=== PATIENT | female | born 1950 | race Asian ===

== ENCOUNTER 2022-09-18 17:38 | Inpatient (IN) | payer MEDICARE, OTHER ==
[~2022-09-18] VITALS: Ht 162.6 cm; Wt 61.7 kg
--- NOTE | 2022-09-18 17:54 | NUR ---
Pt seen by MD @ nursing station. Safety measures in place. Will continue to monitor.
[2022-09-18 17:56] LABS: HEMATOCRIT 38.8 % (31.2-41.9); MEAN CORPUSCULAR HEMOGLOBIN 29.7 uug (24.7-32.8); MEAN CORPUSCULAR VOLUME 89.4 fL (75.5-95.3); PLATELET COUNT (AUTO) 280 K/uL (179-408)
[2022-09-18 18:00] LABS: *BILIRUBIN,URIN NEGATIVE (NEGATIVE); *BLOOD, URINE 1+ (NEGATIVE); *CLARITY,URINE CLEAR (CLEAR); *COLOR,URINE YELLOW (YELLOW); *KETONES,URINE NEGATIVE (NEGATIVE); *UROBILINOGEN,URINE 0.2 E.U./dl (NORMAL); LEUKOCYTE ESTERASE ,URINE NEGATIVE (NEGATIVE); NITRITE, URINE NEGATIVE (NEGATIVE); PH,URINE 5.5 (5.0-8.0); UGLUCOSE NEGATIVE (NEGATIVE)
[2022-09-18] MEDS ORDERED: ATOR10TA PO (18:01)
[2022-09-18] MEDS ORDERED: DONE5TAB7 PO (18:01)
[2022-09-18] MEDS ORDERED: QUET25TA PO ×2 (18:01)
[2022-09-18] MEDS ORDERED: ACET-2030 PO (18:01)
[2022-09-18] MEDS ORDERED: METF-440 PO (18:01)
[2022-09-18 18:06] LABS: WBC,URINE 0-3 /HPF (0-3)
[2022-09-18 18:09] LABS: CARBON DIOXIDE 27 mmol/L (21-32); CHLORIDE 104 mmol/L (98-107); CREATININE 0.8 mg/dL (0.6-1.3); GLUCOSE 101 mg/dL (74-106); POTASSIUM 4.1 mmol/L (3.5-5.1); UREA NITROGEN, BLOOD 21 mg/dL (7-18)
[2022-09-18 18:14] LABS: ALANINE AMINOTRANSFERASE 23 U/L (14-59); ALKALINE PHOSPHATASE 122 U/L (50-136); ASPARTATE AMINOTRANSFERASE 10 U/L (15-37); BILIRUBIN,DIRECT 0.1 mg/dL (0.0-0.2); BILIRUBIN,TOTAL 0.2 mg/dL (0.2-1.0); TOTAL PROTEIN, SERUM 7.5 g/dL (6.4-8.2)
[2022-09-18 18:16] LABS: ACETAMINOPHEN < 2.0 ug/mL (10-30)
[2022-09-18 18:20] LABS: ETHANOL < 3 MG/DL (0-0)
[2022-09-18 18:21] LABS: *AMPHETAMINE, URINE NEGATIVE (NEGATIVE); *CANNABINOID, URINE NEGATIVE (NEGATIVE); *COCCAINE, URINE NEGATIVE (NEGATIVE); *PHENCYCLIDINE SCREEN,URINE NEGATIVE (NEGATIVE)
--- NOTE | 2022-09-18 18:28 | NUR ---
Called Mary for Pt admission. Mary stated she will come in "1 hour." Safety measures in place. Will continue to monitor.
--- NOTE | 2022-09-18 19:00 | NUR ---
ROSALBA Hilario RN
--- NOTE | 2022-09-18 19:06 | NUR ---
Patient is ambulatory with steady gait, wandering around in the ER
--- NOTE | 2022-09-18 19:31 | NUR ---
Mary - Importer Exporter at bedside, psych evaluation in progress
--- NOTE | 2022-09-18 19:32 | NUR ---
called for MHU bed, spoke with Barbara GANDHI. Patient assigned to MHU room 139B
--- NOTE | 2022-09-18 20:14 | NUR ---
called MHU to give report, spoke with switch house operator Moris GANDHI; was told to keep the patient in ER, no RN to receive the patient at the moment
--- NOTE | 2022-09-18 21:06 | NUR ---
Endorsed to Maurilio Lima Earline
--- NOTE | 2022-09-18 21:32 | NUR ---
PT UP OOB AMB TO BR WITH STEADY GAIT. PT A,A AND O X 3 WITH NO COMPLAINTS AND NAD OBSERVED.
[2022-09-18 21:45] VITALS: BP 152/85
[2022-09-18] MEDS ORDERED: CLONAZEPAM 0.5 MG TABLET PO PRN (21:45)
[2022-09-18] MEDS ORDERED: BLOOD SUGAR DIAGNOSTIC 1 EACH STRIP VI ONE (21:45)
[2022-09-18] MEDS ORDERED: MAGNESIUM HYDROXIDE 30 ML LIQUID UDC PO PRN (21:45)
[2022-09-18] MEDS ORDERED: ACETAMINOPHEN 325 MG TABLET PO PRN (21:45)
[2022-09-18] MEDS ORDERED: TEMAZEPAM 7.5 MG CAPSULE PO PRN (21:45)
[2022-09-18] MEDS ORDERED: MAG HYDROX/AL HYDROX/SIMETH 30 ML LIQUID UDC PO PRN (21:45)
--- NOTE | 2022-09-18 21:51 | NUR ---
Pt. admitted to MHU room 139B , under care of Dr. Payne Belongs List completed Maurilio RN aware of patient's arrival
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
[2022-09-19 07:47] VITALS: BP 130/79
[2022-09-19] MEDS: QUETIAPINE FUMARATE 25 MG TABLET PO SCH ×2 (09:41→18:09)
[2022-09-19 15:02] VITALS: BP 142/76
--- NOTE | 2022-09-19 18:39 | NUR ---
Pt is confuse and anxious. Pt is ambulatory and is able to perform her ADLs. Pt is cooperative with care and compliant with medications. Pt is forgetful and goes into other rooms because she forgets her room number.Pt is isolative, withdrawn and stays in his room all day. pt was encouraged to participate in group activities bu refused. Continue to monitor for safety. Continue with treatment plan.
[2022-09-19 19:48] VITALS: BP 136/72
[2022-09-19] MEDS: ATORVASTATIN 10 MG TABLET PO SCH (20:52)
[2022-09-20 07:30] VITALS: BP 135/84
[2022-09-20] MEDS: QUETIAPINE FUMARATE 25 MG TABLET PO SCH ×2 (09:20→17:44)
[2022-09-20] MEDS: METFORMIN HCL 500 MG TABLET PO SCH ×2 (09:20→17:43)
--- NOTE | 2022-09-20 12:23 | NUR ---
BERTIN Family Contact: SW spoke with pt's sonIban in person ([phone]) regarding pt's return to [facility] upon discharge.
[2022-09-20 13:51] LABS: THYROID STIMULATING HORMONE 0.523 mIU/mL (0.358-3.740)
[2022-09-20 15:50] VITALS: BP 125/75
--- NOTE | 2022-09-20 16:18 | NUR ---
BERTIN Initial Discharge Note: Pt currently resides at [facility] located at [address] [place] [address] ([phone]). BERTIN spoke with pt's son, Iban in person ([phone]) regarding pt's return to [facility] upon discharge. BERTIN will continue to work with pt, family and MD to ensure a safe and proper discharge plan.
--- NOTE | 2022-09-20 18:36 | NUR ---
Pt is pleasantly confuse and and forgetful. Pt is ambulatory and is able to perform her ADLs.Pt is cooperative with care and compliant with medications. Pt has poor insight to present situation. Safe environment provided. Will continue to monitor for safety.
[2022-09-20 20:07] VITALS: BP 131/75
[2022-09-20] MEDS: ATORVASTATIN 10 MG TABLET PO SCH (21:33)
--- NOTE | 2022-09-21 05:11 | NUR ---
AOx 2, pt is compliant with care and meds, pt is withdrawn and isolated herself in bed for the entire shift. Contracted for safety with safety strategies implemented. Will continue to monitor.
[2022-09-21 07:34] VITALS: BP 128/72
[2022-09-21] MEDS: METFORMIN HCL 500 MG TABLET PO SCH ×2 (08:38→17:22)
[2022-09-21] MEDS: QUETIAPINE FUMARATE 25 MG TABLET PO SCH ×2 (08:39→17:22)
--- NOTE | 2022-09-21 14:00 | NUR ---
Gps/Electrophysiologist-Per patient she wants to go back to her previous room , when asked where was her previous room, she claimed its in [place], she has all her clothes there , aware she's at [facility] , encouraged to attend her group activity, refused . flat, guarded.pacing around in her room.
[2022-09-21 15:58] VITALS: BP 125/69
[2022-09-21 19:56] VITALS: BP 112/66
[2022-09-21] MEDS: ATORVASTATIN 10 MG TABLET PO SCH (20:26)
--- NOTE | 2022-09-22 05:16 | NUR ---
Pt is withdrawn and isolative. Pt stayed in room the whole shift and slept for 7.15 hours. Pt is cooperative with care and compliant with medications. Safety strategies put in place. Continue to monitor for safety,continue with treatment plan.
[2022-09-22 07:37] VITALS: BP 110/65
[2022-09-22] MEDS: QUETIAPINE FUMARATE 25 MG TABLET PO SCH ×2 (08:45→17:27)
[2022-09-22] MEDS: METFORMIN HCL 500 MG TABLET PO SCH ×2 (08:45→17:27)
--- NOTE | 2022-09-22 13:34 | NUR ---
GPS: Nursing Notes: Thought Disorder: Patient is awake and responding to her name, disoriented, impaired judgment, poor insight, gets easily anxious when redirected, unable to formulate a viable plan for self care, refusing to participate in therapeutic groups, isolative and withdrawn in her room, no aggressive behavior noted, continue to monitor for safety, continue with treatment plan.
[2022-09-22 16:35] VITALS: BP 119/71
[2022-09-22 20:00] VITALS: BP 109/67
[2022-09-22] MEDS: ATORVASTATIN 10 MG TABLET PO SCH (21:00)
--- NOTE | 2022-09-23 06:24 | NUR ---
Patient did not want to take her medication last night. Was mute, angry and had poor eye contact. This am, the patient is up early, rooting around in her room, looking for her cloths and expressing a desire to leave. The patient is disoriented . Redirection and reorientation provided. Safety Stratiges are in place. Continuing to monitor for behavior escalation.
[2022-09-23 07:50] VITALS: BP 121/57
[2022-09-23] MEDS: QUETIAPINE FUMARATE 25 MG TABLET PO SCH ×2 (08:15→17:35)
[2022-09-23] MEDS: METFORMIN HCL 500 MG TABLET PO SCH ×2 (08:15→17:35)
--- NOTE | 2022-09-23 11:12 | NUR ---
GPS: Nursing Notes: Thought Disorder: Patient is awake and responding to her name, disoriented, impaired judgment, refusing to shower, refusing to participate in therapeutic groups, unable to formulate a viable plan for self care, stated "I want to go home.. I don't know what I am doing here..", redirected and reoriented during shift, gets easily irritable when redirected, continue to monitor for safety, continue with treatment plan.
[2022-09-23 16:47] VITALS: BP 139/82
[2022-09-23 19:42] VITALS: BP 126/64
[2022-09-23] MEDS: ATORVASTATIN 10 MG TABLET PO SCH (20:00)
--- NOTE | 2022-09-24 05:06 | NUR ---
Received patient in her bed. Awake but confused. Multiple times this patient was instructed to keep the door to the room open, but she would not comply. The patient was paranoid and refused fluids, snack, PRN medications ,a shower, or to let staff wash her cloths. This publicity writer was not able to engage the patient in any type of meaningful conversation. Safety Stratiges are in place. No aggressive or irritable reactions or behaviors noted, just defiance to the unit rules at this time.
[2022-09-24 07:48] VITALS: BP 129/70
[2022-09-24] MEDS: METFORMIN HCL 500 MG TABLET PO SCH ×2 (08:20→17:05)
[2022-09-24] MEDS: QUETIAPINE FUMARATE 25 MG TABLET PO SCH ×2 (08:20→17:06)
--- NOTE | 2022-09-24 13:03 | NUR ---
BERTIN Family Contact: SW spoke with pt's sonIban in person ([phone]) and discussed the current plan of pt returning to [place] [id number] upon discharge ([phone]).
--- NOTE | 2022-09-24 14:59 | NUR ---
GPS: Nursing Notes: Thought Disorder: Patient is awake and responding to her name, disoriented, impaired judgment, resistant with nursing care, refusing to shower, isolative and withdrawn in her room, no interaction with peers, compliant with her medications, unable to formulate a viable plan for self care, poor grooming, continue to monitor for safety, continue with treatment plan.
[2022-09-24 16:04] VITALS: BP 119/67
[2022-09-24 19:51] VITALS: BP 124/66
[2022-09-24] MEDS: ATORVASTATIN 10 MG TABLET PO SCH (20:18)
[2022-09-25 07:30] VITALS: BP 116/69
[2022-09-25] MEDS: QUETIAPINE FUMARATE 25 MG TABLET PO SCH ×2 (08:10→17:05)
[2022-09-25] MEDS: METFORMIN HCL 500 MG TABLET PO SCH ×2 (08:10→17:05)
--- NOTE | 2022-09-25 14:03 | NUR ---
GPS: Nursing Notes: Thought Disorder: Patient is awake and responding to her name, isolative in her room, no interactions with peers, refusing to participate in therapeutic groups, refusing to shower, believes there is nothing wrong with her, stated "I don't know why I am here... I am fine..", disoriented to time, unable to formulate a viable plan for self care, continue to monitor for safety, continue with treatment plan.
--- NOTE | 2022-09-25 15:05 | NUR ---
Patient had court hearing today, food broker Esequiel Ortiz gave 14 Day probable cause for GD only.
[2022-09-25 15:26] VITALS: BP 123/72
[2022-09-25 19:56] VITALS: BP 111/64
[2022-09-25] MEDS: MEMANTINE HCL 5 MG TABLET PO SCH (20:28)
[2022-09-25] MEDS: ATORVASTATIN 10 MG TABLET PO SCH (20:28)
--- NOTE | 2022-09-26 03:39 | NUR ---
gps notes: Received patient in the room, responsive to her name, gets irritable when approached, states " I want to sleep in". isolative, withdrawn and guarded. Med compliant. Refused hygiene care. Continues to sleep during this shift. No distress noted. All safety strategies left in placed.
[2022-09-26 07:52] VITALS: BP 115/66
[2022-09-26] MEDS: QUETIAPINE FUMARATE 25 MG TABLET PO SCH ×2 (08:25→17:06)
[2022-09-26] MEDS: METFORMIN HCL 500 MG TABLET PO SCH ×2 (08:25→17:06)
--- NOTE | 2022-09-26 09:21 | NUR ---
BERTIN DISCHARGE UPDATE: BERTIN faxed patient's referral packet including: History and Physical, Consultation, Progress Notes, Medication List and Labs to the following facilities for review and possible alf placement: BERTIN faxed updated clinicals to pt's returning facility, [place] [address] ATTN TO GIULIA IN ADMISSIONS F: [phone]. PER GIULIA, PT IS WELCOME BACK ON SATURDAY.
--- NOTE | 2022-09-26 15:28 | NUR ---
Patient is confinding in her room, withdrawn, quiet, confused and disorganized at times, cooperative with nursing care, compliant with medications. Patient requires minimal assistance with ADL. Patient is encourage to vent feelings and emotions. Fall and safety precautions implemented.
[2022-09-26 16:05] VITALS: BP 118/71
[2022-09-26 19:47] VITALS: BP 111/70
[2022-09-26] MEDS: ATORVASTATIN 10 MG TABLET PO SCH (20:17)
[2022-09-26] MEDS: MEMANTINE HCL 5 MG TABLET PO SCH (20:18)
--- NOTE | 2022-09-27 07:00 | NUR ---
GPS Nursing notes: Patient is awake in room , A/O x3, cooperative,calm,participating with self-care this morning, patient is aware of discharge at this time, denies pain or discomforts. No S/S of distress, Denies SI/HI/VH/AH. Patient aware of discharge today to [facility].
[2022-09-27 08:15] VITALS: BP 113/67
[2022-09-27] MEDS: QUETIAPINE FUMARATE 25 MG TABLET PO SCH (08:46)
[2022-09-27] MEDS: METFORMIN HCL 500 MG TABLET PO SCH (09:36)
--- NOTE | 2022-09-27 10:47 | NUR ---
BERTIN Discharge Note: Pt will be discharged to [facility] located at [address] [place] [address] via ambulance transportation at 11AM. BERTIN spoke with admin coordinator, Mary at the facility who states they are ready to accept the patient today. Pt is aware and agreeable with discharge plan. Pts son, Iban ([phone]) is aware and agreeable with the discharge plan. Pt is alert and oriented x3, is unable to plan for self-care at this time. However, pt is willing to accept care at SNF. Pt denies any suicidal or homicidal ideation. Pt will follow-up at the facility with Psychiatrist, Dr. Stapleton and [facility], Dr. Kaye. Pt presents with calm mood and congruent affect. PHARMACY: [facility] ([phone]).
--- NOTE | 2022-09-27 11:17 | NUR ---
GPS Discharge Notes: Patient discharge at this time, continue to denies SI/HI/VH/, medication compliance, discharge instructions provided, patient verbalized understanding, all belonging given to patient, Patient left to [facility] via ambulance , no SOB, denies pain or discomforts, V/S WNLS, emotional support provided.
== END 2022-09-27 11:17 | DRG 885 ==
LOC: ER 17:41 → GPS 21:37
PROVIDERS: ADMIT Nurse Practitioner Psychiatric/Mental Health; ATTEND Nurse Practitioner Acute Care
DX: F20.9 Schizophrenia, unspecified (principal); F02.811 Dementia in other diseases classified elsewhere, unspecified severity, with agitation; G30.9 Alzheimer's disease, unspecified; S06.9XAS Unspecified intracranial injury with loss of consciousness status unknown, sequela; W18.30XS Fall on same level, unspecified, sequela; E78.5 Hyperlipidemia, unspecified; E11.9 Type 2 diabetes mellitus without complications; Z79.84 Long term (current) use of oral hypoglycemic drugs; Z79.899 Other long term (current) drug therapy; G47.00 Insomnia, unspecified
CPT/HCPCS: 36415; 84443; 85025; A4663; G0480